=== PATIENT | female | born 1945 | race Caucasian/White ===

== ENCOUNTER 2021-11-08 18:27 | Emergency (ER) | payer MEDICARE ==
[2021-11-08 19:18] LABS: ALT (SGPT) 12 U/L (8-55); AST (SGOT) 20 U/L (5-34); Albumin 4.1 g/dL (3.4-4.8); Alkaline Phosphatase 65 U/L (40-110); Anion Gap 18 mmol/L (10-20); BUN (Urea Nitrogen) 11 mg/dL (9.8-20.1); Bilirubin, Total 0.4 mg/dL (0.2-1.2); Calc. Creatinine Clearance 0 mL/min (70-130); Calcium 9.1 mg/dL (7.8-10.44); Carbon Dioxide 22 mmol/L (23-31); Chloride 103 mmol/L (98-107); Estimated GFR 68; Globulin 2.6 g/dL (2.4-3.5); Glucose 142 mg/dL (83-110); Magnesium 1.7 mg/dL (1.6-2.6); Potassium 3.5 mmol/L (3.5-5.1); Protein, Total 6.7 g/dL (5.8-8.1); Sodium 139 mmol/L (136-145)
[2021-11-08 19:19] LABS: Hemoglobin 11.8 g/dL (12.0-16.0); Mean Corpuscular HGB CONC 32.8 g/dL (32.0-36.0); Mean Corpuscular Hemoglobin 27.9 pg (27.0-31.0); Mean Corpuscular Volume 84.9 fL (78.0-98.0); Mean Platelet Volume 9.1 fL (7.4-10.4); Platelet Count 213 thou/uL (130-400); RBC Distribution Width 12.6 % (11.5-14.5); Red Blood Cell (RBC) Count 4.23 mill/uL (4.20-5.40)
[2021-11-08 19:29] LABS: Band 6 % (5-11); Lymphocytes 11 % (21-51); MDiff Complete? YES; Manual Diff?? YES; Neutrophil 56 % (42-75)
[2021-11-08 19:30] LABS: Monocytes 5 % (0-10); Reactive Lymphocytes 22 % (0-10)
[2021-11-08 19:35] LABS: Platelet Morphology Comment Appears Adequate
[2021-11-08 19:38] LABS: SARS-CoV-2 NAA Rapid Test DETECTED (NotDetected)
== END 2021-11-08 21:10 | disposition home or self-care (01) ==
LOC: MADERS 18:27
DX: U07.1 COVID-19 (principal); I10 Essential (primary) hypertension; E78.5 Hyperlipidemia, unspecified; E78.00 Pure hypercholesterolemia, unspecified; Z79.899 Other long term (current) drug therapy
CPT/HCPCS: 36415; 71045; 80053; 83605; 83735; 84484; 85025; U0002